=== PATIENT | female | born 1990 | race Caucasian/White ===

== ENCOUNTER 2024-12-31 23:06 | Emergency (ER) | payer OTHER ==
[~2024-12-31] VITALS: Ht 170.2 cm; Wt 68.0 kg
[2025-01-01] MEDS ORDERED: ACET-3102 PO (00:06)
[2025-01-01] MEDS ORDERED: IBUP-1955 PO (00:06)
[2025-01-01 00:28] VITALS: BP 115/65; TEMP 98.1; O2SAT 98
== END 2025-01-01 00:29 | disposition home or self-care (01) ==
LOC: ER 23:09
DX: S60.032A Contusion of left middle finger without damage to nail, initial encounter (principal); J45.909 Unspecified asthma, uncomplicated; M79.642 Pain in left hand; W22.8XXA Striking against or struck by other objects, initial encounter; Y93.89 Activity, other specified; Y92.89 Other specified places as the place of occurrence of the external cause; Y99.8 Other external cause status
CPT/HCPCS: 73130-TC